=== PATIENT | female | born 1955 | race Caucasian/White ===

== ENCOUNTER → 2016-06-24 | Outpatient (CLI) | payer MEDICARE, OTHER ==
[~2016-06-24] MED LIST: ALPR0.254 PO; ATOR40TA59 PO; BUPR150T11 PO; FENO145T2 PO; TRAM1TAB4 PO
--- NOTE | 2016-06-24 16:02 | KCIC ---
PROCEDURE MRI of the brain without contrast 06/24/2016 HISTORY Weakness and dizziness with memory loss and episodes of slurred speech intermittently. TECHNIQUE Unenhanced T1 weighted sagittal and axial, T2 weighted axial and coronal and FLAIR, gradient echo and diffusion weighted axial images of the brain were obtained. FINDINGS Comparison study is dated 05/14/2014. There is mild generalized parenchymal atrophy. Patchy and several small scattered areas of increased signal intensity are seen within the periventricular and subcortical white matter of both cerebral hemispheres on the FLAIR and T2 weighted images consistent most likely with areas of minimal small vessel ischemic disease. They have not significantly changed. No acute parenchymal abnormality is seen. No extra-axial fluid collection is noted. Mild mucosal thickening is seen throughout the paranasal sinuses. Normal flow voids are seen within the major vascular structures surrounding the brain parenchyma. IMPRESSION No acute parenchymal abnormality is seen. Electronically signed by: Feliberto Turner MD (Jun 24, 2016 16:00:41)
== END | disposition home or self-care (01) ==
LOC: KCIC MRI 11:23
PROVIDERS: ATTEND Psychiatry & Neurology Neurology with Special Qualifications in Child Neurology
DX: R53.1 Weakness (principal); R42 Dizziness and giddiness; G47.10 Hypersomnia, unspecified; Z86.73 Personal history of transient ischemic attack (TIA), and cerebral infarction without residual deficits
CPT/HCPCS: 70551

== ENCOUNTER → 2016-07-04 | Outpatient (CLI) | payer MEDICAID, MEDICARE, OTHER ==
[~2016-07-04] MED LIST changes: +ZOLPIDEM 5 MG TABLET. PO ONE
--- NOTE | 2016-07-06 09:51 | SLEEP ---
DATE OF STUDY: 07/04/2016 OBJECTIVE: The patient is a 60-year-old female with excessive somnolence and insomnia. Berkley sleep score is 3 here in the lab, but was higher in my office. Height 5 feet 0 inches, weight 154 pounds. INTERPRETATION: Sleep architecture is characterized by a sleep efficiency of 84% across the 6.9 hours of recording time. Sleep onset latency is 0.3 minutes. Stage volumes are appropriate for age. Respiratory monitoring shows a total of 78 events for an apnea-hypopnea index of 13.4 events per hour of sleep. Minimum oxygen saturation is 80%. Treatment has not started on this study. Periodic limb movements of sleep occur at the rate of 28 events per hour, 7 events per hour associated with arousal. No significant cardiac arrhythmias are observed. IMPRESSION: Abnormal polysomnogram showing obstructive sleep apnea and hypopnea. RECOMMENDATIONS: My office will arrange for a followup sleep study for the purposes of CPAP titration. Thank you for letting us help with the patient's care. SHIREEN PAVON MD DR: PEARL/anthony JOB#: [id number] / [id number] ELEANOR Steward MD
== END | disposition home or self-care (01) ==
LOC: RT 18:26
PROVIDERS: ATTEND Psychiatry & Neurology Neurology with Special Qualifications in Child Neurology
DX: G47.10 Hypersomnia, unspecified (principal)
CPT/HCPCS: 95810

== ENCOUNTER → 2016-07-11 | Outpatient (CLI) | payer MEDICARE, OTHER | END | disposition home or self-care (01) | LOC: RT 18:46 | PROVIDERS: ATTEND Psychiatry & Neurology Neurology with Special Qualifications in Child Neurology | DX: G47.33 Obstructive sleep apnea (adult) (pediatric) (principal) | CPT/HCPCS: 95811 ==

== ENCOUNTER → 2016-08-08 | Outpatient (CLI) | payer MEDICARE, OTHER ==
[~2016-08-08] MED LIST changes: -ZOLPIDEM 5 MG TABLET. PO ONE
--- NOTE | 2016-08-08 12:24 | RAD ---
Exam performed: 2 views of the chest. Indication: PNEUMONIA. Date of Service:08/08/2016 2:00 AM . Comparison : None available Findings: PA and lateral radiographs of the chest reveal a normal cardiomediastinal contour. Linear right basilar opacity probably atelectasis. Prominent bilateral interstitial markings are likely a chronic basis. No focal infiltrates or pleural effusion is seen. The visualized osseous structures are unremarkable. Impression: Linear right basilar atelectasis. Prominent interstitial markings in both lungs probably chronic.
== END | disposition home or self-care (01) ==
LOC: RAD 11:56
PROVIDERS: ATTEND Internal Medicine Pulmonary Disease
DX: J98.11 Atelectasis (principal)
CPT/HCPCS: 71020

== ENCOUNTER → 2016-08-17 | Outpatient (CLI) | payer MEDICARE, OTHER ==
--- NOTE | 2016-08-17 18:36 | RESP ---
DATE OF SERVICE: 08/17/2016 PULMONARY FUNCTION TEST ATTENDING PHYSICIAN: Dr. Warren. The patient's FVC was 2.14, which is 71% predicted, FEV1 ____, which is 67% predicted. FEV1/FVC ratio was normal. FEF 25-75 was 46% predicted. There was no response to bronchodilators. Lung volumes could not be performed. Diffusion capacity was 60% predicted. IMPRESSION: 1. No significant obstructive airway disease, however, spirometry findings are suggestive of a restrictive pattern. I would recommend repeating lung volumes to rule out restrictive lung disease. 2. No significant change to bronchodilators. 3. Moderately reduced diffusion capacity. MICHAEL FLETCHER MD DR: SEEMA/anthony JOB#: [id number] / [id number] JAMES Horowitz MD
== END | disposition home or self-care (01) ==
LOC: PF 09:23
PROVIDERS: ATTEND Internal Medicine Pulmonary Disease
DX: R06.02 Shortness of breath (principal)
CPT/HCPCS: 94060; 94729

== ENCOUNTER → 2017-05-19 | Outpatient (CLI) | payer MEDICARE, OTHER ==
[~2017-05-19] MED LIST changes: -ALPR0.254 PO; -ATOR40TA59 PO; +BARIUM SULFATE 340 GM SUSPENSION. PO; -BUPR150T11 PO; -FENO145T2 PO; -TRAM1TAB4 PO
[2017-05-19] MEDS: BARIUM SULFATE 340 GM SUSPENSION. PO ×2 (10:23)
[2017-05-19] MEDS: BARIUM SULFATE 60% 355 ML SUSP PO ×2 (10:23)
== END | disposition home or self-care (01) ==
LOC: RAD 09:54
DX: I65.23 Occlusion and stenosis of bilateral carotid arteries (principal); E78.01 Familial hypercholesterolemia; K21.9 Gastro-esophageal reflux disease without esophagitis; K22.4 Dyskinesia of esophagus; Z86.73 Personal history of transient ischemic attack (TIA), and cerebral infarction without residual deficits
CPT/HCPCS: 74220; 93880

== ENCOUNTER → 2017-07-19 | Outpatient (CLI) | payer MEDICARE, MEDICAID ==
[~2017-07-19] MED LIST changes: -BARIUM SULFATE 340 GM SUSPENSION. PO; +CONTRAST GIVEN MC; +IOHEXOL 240 MG/ML 50ML VIAL. PO
[2017-07-19] MEDS: IOHEXOL 300 MG/ML 100ML VIAL. IV (11:13)
== END | disposition home or self-care (01) ==
LOC: CT 09:32
DX: I71.4 Abdominal aortic aneurysm, without rupture (principal); N20.0 Calculus of kidney; K80.20 Calculus of gallbladder without cholecystitis without obstruction; I70.0 Atherosclerosis of aorta; J44.9 Chronic obstructive pulmonary disease, unspecified; R56.9 Unspecified convulsions; Z87.891 Personal history of nicotine dependence
CPT/HCPCS: 74177; Q9966; Q9967